=== PATIENT | female | born 1990 | race Caucasian/White ===

== ENCOUNTER 2019-02-16 08:05 | Emergency (ER) | payer SELFPAY ==
[2019-02-16 08:58] LABS: Bilirubin Negative (Negative); Blood, Urine Moderate (Negative); Clarity Clear (Clear); Glucose, Urine (Dipstick) Negative (Negative); Leukocyte Trace (Negative); Nitrite Negative (Negative); Protein, Urine (Dipstick) 30 mg/dL (Neg-Trace); Urobilinogen 0.2 mg/dL (Less than 2)
[2019-02-16 09:00] LABS: #Eosinphils 0.2 thou/uL (0.0-0.7); #Lymphocytes 1.2 thou/uL (1.20-3.40); #Monocytes 0.3 thou/uL (0.11-0.59); #Neutrophils 2.3 thou/uL (1.40-6.50); %Basophils 0.7 % (0.0-1.0); %Eosinophils 3.8 % (0.0-10.0); %Lymphocytes 30.7 % (21.0-51.0); %Monocytes 6.6 % (0.0-10.0); %Neutrophils 58.2 % (42.0-75.0); ALT (SGPT) 12 U/L (8-55); AST (SGOT) 21 U/L (5-34); Acetaminophen Less than 6.0 mcg/mL (10.0-30.0); Albumin 4.6 g/dL (3.5-5.0); Alkaline Phosphatase 65 U/L (40-150); Anion Gap 14 mmol/L (10-20); BUN (Urea Nitrogen) 11 mg/dL (7.0-18.7); Bilirubin, Total 0.4 mg/dL (0.2-1.2); Calc. Creatinine Clearance 0 mL/min (70-130); Calcium 9.2 mg/dL (7.8-10.44); Carbon Dioxide 22 mmol/L (22-29); Chloride 107 mmol/L (98-107); Estimated GFR-MDRD 87; Globulin 2.7 g/dL (2.4-3.5); Glucose 90 mg/dL (70-105); Mean Corpuscular HGB CONC 31.6 g/dL (32.0-36.0); Mean Corpuscular Hemoglobin 24.1 pg (27.0-31.0); Mean Corpuscular Volume 76.3 fL (78.0-98.0); Mean Platelet Volume 9.6 fL (7.4-10.4); Platelet Count 180 thou/uL (130-400); Potassium 3.7 mmol/L (3.5-5.1); Protein, Total 7.3 g/dL (6.0-8.3); RBC Distribution Width 14.4 % (11.5-14.5); Red Blood Cell (RBC) Count 4.99 mill/uL (4.20-5.40); Salicylate Less than 8.0 mg/dL (15.0-30.0); Sodium 139 mmol/L (136-145)
[2019-02-16 09:06] LABS: WBC/HPF 0-3 HPF (0-3)
[2019-02-16 09:07] LABS: Bacteria/HPF 1+ HPF (None Seen)
[2019-02-16 09:08] LABS: Pregnancy Test - Urine (BHCG) Negative (Negative); Pregu Control Background? CLEAR/WHITE (CLR/WHITE); Pregu Control Bar Appear? YES (CONTROL BAR); Specific Gravity 1.025 (1.002-1.036)
[2019-02-16 09:11] LABS: Anisocytosis SLIGHT = 6-15 cells (100X) (0-5/hpf); Platelet Morphology Comment Appears Adequate
[2019-02-16 09:13] LABS: Alcohol Less than 10 mg/dL (Less than 10)
[2019-02-16] MEDS ORDERED: ALPRAZolam 0.5 MG TAB ONE (10:00)
[2019-02-16] MEDS ORDERED: Ondansetron ODT 4 MG TAB ONE (10:00)
== END 2019-02-16 15:55 | disposition home or self-care (01) ==
LOC: MADERS 08:05
DX: F41.9 Anxiety disorder, unspecified (principal); F17.290 Nicotine dependence, other tobacco product, uncomplicated
CPT/HCPCS: 80053; 80307; 81003; 81015; 81025; 84443; 85025; 99284; Q0162

== ENCOUNTER 2019-09-14 13:16 | Emergency (ER) | payer SELFPAY ==
[~2019-09-14 13:16] MED LIST: Iopamidol 370 76% 100 ML VIAL ONE
[2019-09-14 14:20] LABS: #Eosinphils 0.1 thou/uL (0.0-0.7); #Lymphocytes 1.3 thou/uL (1.20-3.40); #Monocytes 0.4 thou/uL (0.11-0.59); #Neutrophils 4.6 thou/uL (1.40-6.50); %Basophils 0.5 % (0.0-1.0); %Eosinophils 1.2 % (0.0-10.0); %Lymphocytes 19.9 % (21.0-51.0); %Monocytes 6.4 % (0.0-10.0); Hemoglobin 12.6 g/dL (12.0-16.0); Mean Corpuscular HGB CONC 31.3 g/dL (32.0-36.0); Mean Corpuscular Hemoglobin 25.2 pg (27.0-31.0); Mean Corpuscular Volume 80.4 fL (78.0-98.0); Mean Platelet Volume 8.8 fL (7.4-10.4); Platelet Count 216 thou/uL (130-400); RBC Distribution Width 14.1 % (11.5-14.5); Red Blood Cell (RBC) Count 5.01 mill/uL (4.20-5.40); White Blood Cell (WBC) Count 6.4 thou/uL (4.8-10.8)
[2019-09-14] MEDS ORDERED: Sodium Chloride 0.9% 1,000 ML ONE (14:24)
[2019-09-14] MEDS ORDERED: diphenhydrAMINE 50 MG/ML VIAL ONE (14:24)
[2019-09-14] MEDS ORDERED: methylPREDNISolone Sod Succ/PF 125 MG/2 ML VIAL ONE (14:24)
[2019-09-14 14:27] LABS: Anion Gap 15 mmol/L (10-20); BUN (Urea Nitrogen) 11 mg/dL (7.0-18.7); Calc. Creatinine Clearance 0 mL/min (70-130); Calcium 9.2 mg/dL (7.8-10.44); Carbon Dioxide 25 mmol/L (22-29); Chloride 106 mmol/L (98-107); Estimated GFR-MDRD Greater than 90; Glucose 73 mg/dL (70-105); Potassium 3.9 mmol/L (3.5-5.1); Sodium 142 mmol/L (136-145)
[2019-09-14 14:29] LABS: BHCG - Serum Negative (NEGATIVE); Pregs Control Background? CLEAR/WHITE (CLR/WHITE); Pregs Control Bar Appear? YES (CONTROL BAR)
[2019-09-14] MEDS ORDERED: Ketorolac Tromethamine 30 MG/ML VIAL ONE (15:11)
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
== END 2019-09-14 16:10 | disposition home or self-care (01) ==
LOC: MADERS 13:16
DX: S09.90XA Unspecified injury of head, initial encounter (principal); S16.1XXA Strain of muscle, fascia and tendon at neck level, initial encounter; S39.91XA Unspecified injury of abdomen, initial encounter; S29.9XXA Unspecified injury of thorax, initial encounter; J45.909 Unspecified asthma, uncomplicated; F41.9 Anxiety disorder, unspecified; Z79.899 Other long term (current) drug therapy; V80.010A Animal-rider injured by fall from or being thrown from horse in noncollision accident, initial encounter
CPT/HCPCS: 70450; 71260; 72125; 74177; 80048; 84703; 85025; 96361; 96374; 96375; J1200; J1885; J2930; J7050; L0120; Q9967

== ENCOUNTER 2020-01-13 09:51 | Emergency (ER) | payer SELFPAY ==
[~2020-01-13 09:51] MED LIST changes: -Iopamidol 370 76% 100 ML VIAL ONE; +Sodium Chloride 0.9% 1,000 ML BAG ONE
[2020-01-13 11:05] LABS: #Eosinphils 0.2 thou/uL (0.0-0.7); #Lymphocytes 1.5 thou/uL (1.20-3.40); #Monocytes 0.4 thou/uL (0.11-0.59); #Neutrophils 2.8 thou/uL (1.40-6.50); %Eosinophils 3.9 % (0.0-10.0); %Lymphocytes 30.7 % (21.0-51.0); %Monocytes 7.2 % (0.0-10.0); %Neutrophils 57.2 % (42.0-75.0); Hemoglobin 12.6 g/dL (12.0-16.0); Mean Corpuscular HGB CONC 32.6 g/dL (32.0-36.0); Mean Corpuscular Hemoglobin 26.6 pg (27.0-31.0); Mean Corpuscular Volume 81.5 fL (78.0-98.0); Mean Platelet Volume 9.3 fL (7.4-10.4); Platelet Count 165 thou/uL (130-400); RBC Distribution Width 13.8 % (11.5-14.5); Red Blood Cell (RBC) Count 4.74 mill/uL (4.20-5.40); White Blood Cell (WBC) Count 4.9 thou/uL (4.8-10.8)
[2020-01-13 11:09] LABS: PTT 27.3 sec (22.9-36.1); Prothrombin Time 12.9 sec (12.0-14.7)
[2020-01-13] MEDS ORDERED: Pantoprazole 40 MG VIAL ONE (11:12)
[2020-01-13] MEDS ORDERED: Sodium Chloride 0.9% 100 ML ONE (11:12)
[2020-01-13] MEDS ORDERED: Silver Nitrate Application 1 EACH ONE (11:12)
[2020-01-13] MEDS ORDERED: ALPRAZolam 0.5 MG TAB ONE (11:12)
[2020-01-13 11:20] LABS: ALT (SGPT) 19 U/L (8-55); AST (SGOT) 23 U/L (5-34); Albumin 4.3 g/dL (3.5-5.0); Alkaline Phosphatase 53 U/L (40-110); Anion Gap 13 mmol/L (10-20); BUN (Urea Nitrogen) 9 mg/dL (7.0-18.7); Bilirubin, Total 0.3 mg/dL (0.2-1.2); Calc. Creatinine Clearance 0 mL/min (70-130); Calcium 8.8 mg/dL (7.8-10.44); Carbon Dioxide 25 mmol/L (22-29); Chloride 107 mmol/L (98-107); Estimated GFR-MDRD Greater than 90; Globulin 2.7 g/dL (2.4-3.5); Glucose 62 mg/dL (70-105); Potassium 4.1 mmol/L (3.5-5.1); Sodium 141 mmol/L (136-145)
[2020-01-13 11:24] LABS: BHCG - Serum Negative (NEGATIVE); Pregs Control Background? CLEAR/WHITE (CLR/WHITE); Pregs Control Bar Appear? YES (CONTROL BAR)
== END 2020-01-13 12:10 | disposition home or self-care (01) ==
LOC: MADERS 09:51
DX: K92.2 Gastrointestinal hemorrhage, unspecified (principal); F41.9 Anxiety disorder, unspecified; F32.9 Major depressive disorder, single episode, unspecified; F17.220 Nicotine dependence, chewing tobacco, uncomplicated; Z79.899 Other long term (current) drug therapy
CPT/HCPCS: 80053; 82274; 84703; 85025; 85610; 85730; 93005; 96365; 96376; C9113; J3490; J7050

== ENCOUNTER 2020-02-02 14:54 | Emergency (ER) | payer SELFPAY ==
[2020-02-02] MEDS ORDERED: Ibuprofen 800 MG TAB ONE (15:25)
[2020-02-02] MEDS ORDERED: HYDROcodone/Acetaminophen 5/325 mg Tablet ONE (15:25)
--- NOTE | 2020-02-02 15:28 | RAD ---
XR Shoulder Lt 3 View STANDARD: 02/02/2020 3:08 PM CLINICAL INDICATION: Possible dislocation. COMPARISON: None. FINDINGS: Bones: No acute fracture. Glenohumeral joint: Normal alignment. AC joint: Normal alignment. Visualized lung: Clear. Soft tissues: Within normal limits. IMPRESSION: No acute osseous abnormality.
== END 2020-02-02 15:35 | disposition home or self-care (01) ==
LOC: MADERS 14:54
DX: S43.005A Unspecified dislocation of left shoulder joint, initial encounter (principal); X50.9XXA Other and unspecified overexertion or strenuous movements or postures, initial encounter
CPT/HCPCS: 23650

== ENCOUNTER 2020-02-05 14:14 | Emergency (ER) | payer SELFPAY ==
[~2020-02-05 14:14] MED LIST changes: -Sodium Chloride 0.9% 1,000 ML BAG ONE; +Sodium Chloride 0.9% 500 ML BAG ONE
[2020-02-05] MEDS ORDERED: Ketorolac Tromethamine 30 MG/ML VIAL ONE (14:47)
[2020-02-05] MEDS ORDERED: Morphine 4 MG/ML VIAL ONE ×3 (14:47→21:52)
--- NOTE | 2020-02-05 14:54 | RAD ---
Exam:Left shoulder 3 views HISTORY: Pain COMPARISON: 02/02/2020 FINDINGS: Preserved glenohumeral joint space. No fractures or dislocation. IMPRESSION: No significant interval change. No acute osseous abnormality.
--- NOTE | 2020-02-05 14:59 | RAD ---
Radiograph left elbow 4 views: 02/05/2020 History: 29-year-old female with left elbow pain COMPARISON: None FINDINGS: Patient is unable to flex the elbow, and there is, therefore, no standard lateral view. AP view and b ilateral oblique views are submitted. No fracture, dislocation, joint erosions, joint space narrowing, or osteophytes, are visualized. No destructive osseous lesion or periostitis. IMPRESSION: 1.) Limited range of motion, such that standard lateral view could not be obtained. Limited study. 2) no pathology identified.
--- NOTE | 2020-02-05 15:37 | RAD ---
EXAM: LEFT SHOULDER THREE VIEWS: 02/05/20 HISTORY: Check reduction. FINDINGS: No evidence for acute fracture or dislocation. Stable appearance from 02/05/20 prior exam and 02/02/20 exam. IMPRESSION: No fracture or dislocation. POS: [facility]
[2020-02-05] MEDS ORDERED: Diazepam 5 MG TAB ONE ×2 (16:18→19:21)
[2020-02-05] MEDS ORDERED: Morphine 2 MG/ML SYRINGE ONE (16:19)
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
[2020-02-05] MEDS ORDERED: Fentanyl 100 MCG/2 ML VIAL ONE ×2 (17:28→18:44)
[2020-02-05] MEDS ORDERED: PROPOFOL 20 ML ONE (17:43)
[2020-02-05] MEDS ORDERED: Dexamethasone 10 MG/ML VIAL ONE (19:33)
--- NOTE | 2020-02-05 19:37 | RAD ---
LATERAL VIEW LEFT ELBOW: 02/05/20 PROVIDED CLINICAL HISTORY: Elbow pain and popping. FINDINGS: Comparison 02/05/20, 3:58 p.m. Interval placement of posterior splint material. There is no evidence for fracture with limitations d ue to lack of orthogonal projection. No significant elbow joint capsular distention is evident. IMPRESSION: Limited exam. POS: [facility]
--- NOTE | 2020-02-05 19:40 | RAD ---
FRONTAL VIEW LEFT SHOUDLER: 02/05/20 PROVIDED CLINICAL HISTORY: Shoulder popping out of place. FINDINGS: Comparison is made with the examination performed earlier same date. The glenohumeral relationship is not well assessed in the absence of a scapular Y or axillary view. T here is no evidence for fracture with limitations due to lack of an orthogonal projection. IMPRESSION: Limited study. POS: [facility]
[2020-02-05] MEDS ORDERED: Cyclobenzaprine 10 MG TAB ONE (21:26)
== END 2020-02-05 22:20 | disposition short-term general hospital (02) ==
LOC: MADERS 14:14
DX: S53.402A Unspecified sprain of left elbow, initial encounter (principal); M24.412 Recurrent dislocation, left shoulder; M62.838 Other muscle spasm; F17.220 Nicotine dependence, chewing tobacco, uncomplicated; J45.909 Unspecified asthma, uncomplicated; Z79.899 Other long term (current) drug therapy; X50.9XXA Other and unspecified overexertion or strenuous movements or postures, initial encounter
CPT/HCPCS: 23650; 29105; 96361; 96374; 96375; 96376; 99152; J1100; J1885; J2270; J2704; J3010; J7030

== ENCOUNTER 2020-02-18 12:31 | Emergency (ER) | payer SELFPAY ==
[2020-02-18] MEDS ORDERED: Acetaminophen 500 MG TAB ONE (13:51)
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
== END 2020-02-18 14:38 | disposition home or self-care (01) ==
LOC: MADERS 12:31
DX: S06.0X9A Concussion with loss of consciousness of unspecified duration, initial encounter (principal); S01.01XA Laceration without foreign body of scalp, initial encounter; S05.12XA Contusion of eyeball and orbital tissues, left eye, initial encounter; S00.11XA Contusion of right eyelid and periocular area, initial encounter; R04.0 Epistaxis; G43.909 Migraine, unspecified, not intractable, without status migrainosus; J45.909 Unspecified asthma, uncomplicated; F17.220 Nicotine dependence, chewing tobacco, uncomplicated; Y04.2XXA Assault by strike against or bumped into by another person, initial encounter
CPT/HCPCS: 70450; 70486; 72125

== ENCOUNTER 2020-03-03 15:27 | Emergency (ER) | payer SELFPAY ==
--- NOTE | 2020-03-03 16:07 | RAD ---
Exam: XR Shoulder Lt 3 View STANDARD HISTORY: Left shoulder pain COMPARISON: 02/06/2020 FINDINGS: No acute fracture, dislocation, or other acute osseous abnormality is identified. IMPRESSION: No acute osseous abnormality is identified.
[2020-03-03] MEDS ORDERED: HYDROcodone/Acetaminophen 5/325 mg Tablet ONE (16:18)
--- NOTE | 2020-03-03 16:40 | RAD ---
EXAM: XR Ribs Lt>=2 View W/PA CXR PROVIDED CLINICAL HISTORY: Left rib pain. COMPARISON: Chest x-ray on 04/15/2019 FINDINGS: Cardiac silhouette and pulmonary vasculature are within normal limits. The lungs are clear. No pneumo thorax or pleural effusion is identified. No rib fracture is visualized. Chest is stable compared to prior exam. IMPRESSION: 1. No acute cardiopulmonary process. 2. No evidence of a left-sided rib fracture.
== END 2020-03-03 17:03 | disposition home or self-care (01) ==
LOC: MADERS 15:27
DX: S43.402A Unspecified sprain of left shoulder joint, initial encounter (principal); S20.212A Contusion of left front wall of thorax, initial encounter; J45.909 Unspecified asthma, uncomplicated; G43.909 Migraine, unspecified, not intractable, without status migrainosus; F17.220 Nicotine dependence, chewing tobacco, uncomplicated; W55.22XA Struck by cow, initial encounter

== ENCOUNTER 2020-04-19 18:29 | Emergency (ER) | payer SELFPAY ==
[~2020-04-19 18:29] MED LIST changes: +Iopamidol 370 76% 125 ML VIAL FS ONE; -Sodium Chloride 0.9% 500 ML BAG ONE
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
[2020-04-19] MEDS ORDERED: Morphine 4 MG/ML VIAL ONE (20:03)
[2020-04-19 20:38] LABS: #Eosinphils 0.1 thou/uL (0.0-0.7); #Lymphocytes 1.9 thou/uL (1.20-3.40); #Monocytes 0.3 thou/uL (0.11-0.59); #Neutrophils 3.3 thou/uL (1.40-6.50); %Basophils 0.9 % (0.0-1.0); %Eosinophils 2.3 % (0.0-10.0); %Lymphocytes 33.2 % (21.0-51.0); %Neutrophils 57.6 % (42.0-75.0); Hemoglobin 13.4 g/dL (12.0-16.0); Mean Corpuscular HGB CONC 31.7 g/dL (32.0-36.0); Mean Corpuscular Hemoglobin 26.9 pg (27.0-31.0); Mean Corpuscular Volume 84.8 fL (78.0-98.0); Mean Platelet Volume 8.6 fL (7.4-10.4); Platelet Count 216 thou/uL (130-400); RBC Distribution Width 12.3 % (11.5-14.5); Red Blood Cell (RBC) Count 4.98 mill/uL (4.20-5.40); White Blood Cell (WBC) Count 5.7 thou/uL (4.8-10.8)
[2020-04-19 20:52] LABS: ALT (SGPT) 25 U/L (8-55); AST (SGOT) 29 U/L (5-34); Albumin 4.6 g/dL (3.5-5.0); Alkaline Phosphatase 55 U/L (40-110); Anion Gap 14 mmol/L (10-20); BUN (Urea Nitrogen) 12 mg/dL (7.0-18.7); Bilirubin, Total Less than 0.2 mg/dL (0.2-1.2); Calc. Creatinine Clearance 0 mL/min (70-130); Calcium 9.6 mg/dL (7.8-10.44); Carbon Dioxide 24 mmol/L (22-29); Chloride 108 mmol/L (98-107); Estimated GFR-MDRD Greater than 90; Globulin 2.9 g/dL (2.4-3.5); Glucose 76 mg/dL (70-105); Potassium 3.9 mmol/L (3.5-5.1); Protein, Total 7.5 g/dL (6.0-8.3); Sodium 142 mmol/L (136-145)
[2020-04-19 21:14] LABS: Pregnancy Test - Urine (BHCG) Negative (Negative)
[2020-04-19 21:15] LABS: Pregu Control Background? CLEAR/WHITE (CLR/WHITE); Pregu Control Bar Appear? YES (CONTROL BAR); Specific Gravity Greater than 1.035 (1.002-1.036)
== END 2020-04-19 21:08 | disposition short-term general hospital (02) ==
LOC: MADERS 18:29
DX: S06.0X9A Concussion with loss of consciousness of unspecified duration, initial encounter (principal); J45.909 Unspecified asthma, uncomplicated; G43.909 Migraine, unspecified, not intractable, without status migrainosus; F17.220 Nicotine dependence, chewing tobacco, uncomplicated; Z79.899 Other long term (current) drug therapy; Y04.0XXA Assault by unarmed brawl or fight, initial encounter
CPT/HCPCS: 70450; 70496; 70498; 80053; 81025; 84443; 85025; 96374; J2270; Q9967

== ENCOUNTER 2020-07-14 10:28 | Emergency (ER) | payer BC ==
[~2020-07-14 10:28] MED LIST changes: +Iopamidol 370 76% 100 ML VIAL ONE; -Iopamidol 370 76% 125 ML VIAL FS ONE
[2020-07-14 11:19] LABS: #Eosinphils 0.1 thou/uL (0.0-0.7); #Lymphocytes 1.1 thou/uL (1.20-3.40); #Monocytes 0.3 thou/uL (0.11-0.59); %Basophils 0.5 % (0.0-1.0); %Eosinophils 1.5 % (0.0-10.0); %Lymphocytes 24.4 % (21.0-51.0); %Monocytes 6.8 % (0.0-10.0); %Neutrophils 66.8 % (42.0-75.0); Anisocytosis SLIGHT = 6-15 cells (100X) (0-5/hpf); Hemoglobin 13.1 g/dL (12.0-16.0); Hypochromia SLIGHT = 6-15 cells (100X) (0-5/hpf); Large Platelets SLIGHT; MDiff Complete? YES; Mean Corpuscular HGB CONC 33.3 g/dL (32.0-36.0); Mean Corpuscular Hemoglobin 27.1 pg (27.0-31.0); Mean Corpuscular Volume 81.4 fL (78.0-98.0); Mean Platelet Volume 12.9 fL (7.4-10.4); Platelet Count 134 thou/uL (130-400); Platelet Morphology Comment Appears Adequate; RBC Distribution Width 11.9 % (11.5-14.5); Red Blood Cell (RBC) Count 4.83 mill/uL (4.20-5.40); White Blood Cell (WBC) Count 4.5 thou/uL (4.8-10.8)
[2020-07-14 11:20] LABS: ALT (SGPT) 16 U/L (8-55); AST (SGOT) 22 U/L (5-34); Albumin 4.1 g/dL (3.5-5.0); Alkaline Phosphatase 52 U/L (40-110); Anion Gap 12 mmol/L (10-20); BHCG - Serum Negative (NEGATIVE); BUN (Urea Nitrogen) 6 mg/dL (7.0-18.7); Bilirubin, Total 0.4 mg/dL (0.2-1.2); Calc. Creatinine Clearance 0 mL/min (70-130); Calcium 8.8 mg/dL (7.8-10.44); Carbon Dioxide 23 mmol/L (22-29); Chloride 109 mmol/L (98-107); Globulin 2.6 g/dL (2.4-3.5); Glucose 91 mg/dL (70-105); Potassium 4.1 mmol/L (3.5-5.1); Pregs Control Background? CLEAR/WHITE (CLR/WHITE); Pregs Control Bar Appear? YES (CONTROL BAR); Protein, Total 6.7 g/dL (6.0-8.3); Sodium 140 mmol/L (136-145)
[2020-07-14 11:21] LABS: Amphetamine Not Detected (NotDetected); Barbiturates Screen Not Detected (NotDetected); Benzodiazepine Screen Detected (NotDetected); Cocaine Metabolite Screen Not Detected (NotDetected); Medtox Control Line Valid? VALID (VALID); Methadone Not Detected (NotDetected); Methamphetamine Not Detected (NotDetected); Opiate Screen Not Detected (NotDetected); Oxycodone Screen Not Detected (NotDetected); Phencyclidine (PCP) Not Detected (NotDetected); THC/Cannabinoid Screen Not Detected (NotDetected); Tricyclic Screen Not Detected (NotDetected)
[2020-07-14] MEDS ORDERED: levETIRAcetam 500 MG TAB ONE (12:25)
--- NOTE | 2020-07-14 12:54 | CT ---
CT of the abdomen, pelvis, and lumbar spine: 07/14/2020 COMPARISON: None HISTORY: Diffuse pain TECHNIQUE: Axial CT imaging at 5 mm intervals from lung bases through pubic symphysis with IV contras t. Coronal and sagittal reformatted imaging of the abdomen, pelvis, and lumbar spine provided. FINDINGS: The imaged lung bases appear unremarkable. No free intraperitoneal air or fluid is seen. Th ere is an IUD within the uterus. The liver, spleen, pancreas, adrenal glands, and kidneys are unremarkable. Multiple foci of hyperdens ity within the gallbladder suggest cholelithiasis. There is a 3.3 cm left ovarian cyst on axial image 82. Limited assessment of the bowel without oral contrast media demonstrates no acute findings. The vascular structures of the abdomen/pelvis appear patent. No abdominal or pelvic lymphadenopathy is evident. The extraspinal osseous structures of the abdomen/pelvis demonstrate no evidence for acute fracture. CT imaging of the lumbar spine demonstrates normal lumbar vertebral body height and alignment. No ella dence for an acute fracture is seen within the lumbar spine. IMPRESSION: Incidental findings as detailed above. No acute findings are seen within the abdomen/pelv is.
[2020-07-14] MEDS ORDERED: Ibuprofen 400 MG TAB ONE (13:22)
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
== END 2020-07-14 14:30 | disposition home or self-care (01) ==
LOC: MADERS 10:28 → EEVIPCON 10:28 → MADERS 14:30
DX: G40.409 Other generalized epilepsy and epileptic syndromes, not intractable, without status epilepticus (principal); S20.212A Contusion of left front wall of thorax, initial encounter; M54.5 Low back pain; R10.9 Unspecified abdominal pain; F17.220 Nicotine dependence, chewing tobacco, uncomplicated; F32.9 Major depressive disorder, single episode, unspecified; Z79.899 Other long term (current) drug therapy; Y04.2XXA Assault by strike against or bumped into by another person, initial encounter
CPT/HCPCS: 36415; 70450; 72100; 72125; 74177; 80053; 80306; 84146; 84703; 85025; Q9967

== ENCOUNTER 2020-10-19 09:50 | Emergency (ER) | payer BC ==
[2020-10-19] MEDS ORDERED: Morphine 4 MG/ML VIAL ONE (11:25)
== END 2020-10-19 11:58 | disposition home or self-care (01) ==
LOC: MADERS 09:50
DX: M25.511 Pain in right shoulder (principal); J45.909 Unspecified asthma, uncomplicated; G43.909 Migraine, unspecified, not intractable, without status migrainosus; F17.220 Nicotine dependence, chewing tobacco, uncomplicated; Z79.899 Other long term (current) drug therapy; Z86.69 Personal history of other diseases of the nervous system and sense organs; X50.1XXA Overexertion from prolonged static or awkward postures, initial encounter
CPT/HCPCS: 96372; J2270

== ENCOUNTER 2021-01-31 14:30 | Emergency (ER) | payer BC | END 2021-01-31 15:50 | disposition home or self-care (01) | LOC: MADERS 14:30 | DX: B09 Unspecified viral infection characterized by skin and mucous membrane lesions (principal); B02.9 Zoster without complications; L23.7 Allergic contact dermatitis due to plants, except food; G43.909 Migraine, unspecified, not intractable, without status migrainosus; J45.909 Unspecified asthma, uncomplicated; F17.220 Nicotine dependence, chewing tobacco, uncomplicated | CPT/HCPCS: 99282 ==

== ENCOUNTER 2021-02-27 13:39 | Emergency (ER) | payer BC ==
[2021-02-27] MEDS ORDERED: Ondansetron PF 4 MG/2 ML Vial ONE (14:10)
[2021-02-27] MEDS ORDERED: Sodium Chloride 0.9% 1,000 ML ONE (14:11)
[2021-02-27 14:15] LABS: #Lymphocytes 1.2 thou/uL (1.20-3.40); #Monocytes 0.4 thou/uL (0.11-0.59); #Neutrophils 4.7 thou/uL (1.40-6.50); %Basophils 0.5 % (0.0-1.0); %Eosinophils 0.7 % (0.0-10.0); %Lymphocytes 18.4 % (21.0-51.0); %Monocytes 6.9 % (0.0-10.0); %Neutrophils 73.5 % (42.0-75.0); Hemoglobin 14.5 g/dL (12.0-16.0); Mean Corpuscular Hemoglobin 27.3 pg (27.0-31.0); Mean Corpuscular Volume 82.8 fL (78.0-98.0); Mean Platelet Volume 9.1 fL (7.4-10.4); Platelet Count 190 thou/uL (130-400); RBC Distribution Width 12.5 % (11.5-14.5); Red Blood Cell (RBC) Count 5.32 mill/uL (4.20-5.40); White Blood Cell (WBC) Count 6.4 thou/uL (4.8-10.8)
[2021-02-27 14:24] LABS: BHCG - Serum Negative (NEGATIVE); Pregs Control Background? CLEAR/WHITE (CLR/WHITE); Pregs Control Bar Appear? YES (CONTROL BAR)
[2021-02-27 14:32] LABS: ALT (SGPT) 12 U/L (8-55); AST (SGOT) 14 U/L (5-34); Albumin 4.3 g/dL (3.5-5.0); Alkaline Phosphatase 53 U/L (40-110); Anion Gap 14 mmol/L (10-20); BUN (Urea Nitrogen) 10 mg/dL (7.0-18.7); Bilirubin, Total 0.7 mg/dL (0.2-1.2); Calc. Creatinine Clearance 0 mL/min (70-130); Calcium 9.8 mg/dL (7.8-10.44); Carbon Dioxide 24 mmol/L (22-29); Chloride 108 mmol/L (98-107); Globulin 2.6 g/dL (2.4-3.5); Glucose 89 mg/dL (70-105); Potassium 3.5 mmol/L (3.5-5.1); Protein, Total 6.9 g/dL (6.0-8.3); Sodium 142 mmol/L (136-145)
[2021-02-27] MEDS ORDERED: Acetaminophen 500 MG TAB ONE (15:23)
== END 2021-02-27 16:19 | disposition home or self-care (01) ==
LOC: MADERS 13:39
DX: S06.0X1A Concussion with loss of consciousness of 30 minutes or less, initial encounter (principal); R00.0 Tachycardia, unspecified; G43.909 Migraine, unspecified, not intractable, without status migrainosus; J45.909 Unspecified asthma, uncomplicated; F17.220 Nicotine dependence, chewing tobacco, uncomplicated; Z86.69 Personal history of other diseases of the nervous system and sense organs; V80.010A Animal-rider injured by fall from or being thrown from horse in noncollision accident, initial encounter
CPT/HCPCS: 70450; 71260; 72125; 74177; 80053; 84703; 85025; 96374; J2405; J7050; Q9967

== ENCOUNTER 2021-06-05 12:16 | Emergency (ER) | payer BC ==
[2021-06-05] MEDS ORDERED: HYDROcodone/Acetaminophen 5/325 mg Tablet ONE (14:37)
[2021-06-05] MEDS ORDERED: predniSONE 20 MG TAB ONE (15:17)
[2021-06-05] MEDS ORDERED: Ketorolac Tromethamine 30 MG/ML VIAL ONE (15:17)
== END 2021-06-05 17:00 | disposition home or self-care (01) ==
LOC: MADERS 12:16
DX: S56.912A Strain of unspecified muscles, fascia and tendons at forearm level, left arm, initial encounter (principal); J45.909 Unspecified asthma, uncomplicated; F17.220 Nicotine dependence, chewing tobacco, uncomplicated
CPT/HCPCS: 29125; 96372; J1885; J7512